=== PATIENT | male | born 1970 | race Caucasian/White ===

== ENCOUNTER → 2016-08-22 | Outpatient (CLI) | payer BC ==
[2016-08-22 11:36] LABS: Prolactin 12.7 ng/mL (3.7-17.9)
== END | disposition home or self-care (01) ==
LOC: LABWHC1 10:42
PROVIDERS: ATTEND Internal Medicine Endocrinology, Diabetes & Metabolism
DX: E05.90 Thyrotoxicosis, unspecified without thyrotoxic crisis or storm (principal); R53.83 Other fatigue
CPT/HCPCS: 36415; 82533; 84146; 84439; 84443; 84445; 84480

== ENCOUNTER → 2016-08-27 | Outpatient (CLI) | payer BC ==
--- NOTE | 2016-08-28 12:52 | NM ---
EXAMINATION TYPE: NM thyroid image w uptake DATE OF EXAM: 08/28/2016 12:31 PM COMPARISON: NONE HISTORY: Subclinical hyperthyroidism TECHNIQUE: After the intravenous administration of 10.45 mCi Tc 99m Sodium Pertechnetate, thyroid lenny ging is performed 10 minutes post injection. Thyroid iodine uptake is calculated after the oral admin istration of 16 uCi I-131 capsule. FINDINGS: There is normal distribution of activity throughout the gland. No photopenic defect or foc al hot nodules are evident. The 4 hour iodine uptake is calculated at 6.8% which is slightly low. (no rmal range 8-14%). The 24-hour iodine uptake is calculated at 21.1% (normal range 15-35%). IMPRESSION: 1. Slight low uptake at 4 hours abnormal uptake at 24 hours. 2. Note suspicious signal abnormality on uptake
== END | disposition home or self-care (01) ==
LOC: RADNMMAIN 11:17
PROVIDERS: ATTEND Internal Medicine Endocrinology, Diabetes & Metabolism
DX: E05.90 Thyrotoxicosis, unspecified without thyrotoxic crisis or storm (principal)
CPT/HCPCS: 78014; A9528; A9512

== ENCOUNTER → 2016-10-14 | Outpatient (CLI) | payer BC | END | disposition home or self-care (01) | LOC: LABWHC1 17:28 | PROVIDERS: ATTEND Internal Medicine Endocrinology, Diabetes & Metabolism | DX: E05.90 Thyrotoxicosis, unspecified without thyrotoxic crisis or storm (principal) | CPT/HCPCS: 36415; 84439; 84443; 84480 ==

== ENCOUNTER → 2016-12-19 | Outpatient (CLI) | payer BC | LOC: LABWHC1 12:08 | PROVIDERS: ATTEND Internal Medicine Endocrinology, Diabetes & Metabolism | DX: E05.90 Thyrotoxicosis, unspecified without thyrotoxic crisis or storm (principal) | CPT/HCPCS: 36415; 84439; 84443; 84480 ==

== ENCOUNTER → 2017-07-19 | Outpatient (CLI) | payer BC ==
[2017-07-19 14:34] LABS: T4, Free (Free Thyroxine) 0.95 ng/dL (0.78-2.19)
== END | disposition home or self-care (01) ==
LOC: LABWHC1 13:15
PROVIDERS: ATTEND Internal Medicine Endocrinology, Diabetes & Metabolism
DX: E05.90 Thyrotoxicosis, unspecified without thyrotoxic crisis or storm (principal)
CPT/HCPCS: 36415; 84439; 84443; 84480

== ENCOUNTER → 2017-10-18 | Outpatient (CLI) | payer BC ==
[2017-10-18 15:50] LABS: ALT 37 U/L (21-72); AST 26 U/L (17-59); Albumin 4.6 g/dL (3.5-5.0); Alkaline Phosphatase 70 U/L (38-126); Anion Gap 12 mmol/L; Blood Urea Nitrogen 9 mg/dL (9-20); Calcium 9.4 mg/dL (8.4-10.2); Carbon Dioxide 29 mmol/L (22-30); Chloride 104 mmol/L (98-107); Glucose 88 mg/dL (74-99); Potassium 3.8 mmol/L (3.5-5.1); Sodium 145 mmol/L (137-145); Total Bilirubin 0.7 mg/dL (0.2-1.3); Total Protein 7.2 g/dL (6.3-8.2)
[2017-10-18 16:06] LABS: T4, Free (Free Thyroxine) 0.78 ng/dL (0.78-2.19)
== END | disposition home or self-care (01) ==
LOC: LABWHC1 14:57
PROVIDERS: ATTEND Internal Medicine Endocrinology, Diabetes & Metabolism
DX: E05.90 Thyrotoxicosis, unspecified without thyrotoxic crisis or storm (principal)
CPT/HCPCS: 36415; 80053; 84439; 84443; 84480

== ENCOUNTER 2018-03-06 20:03 | Emergency (ER) | payer BC ==
[2018-03-06 20:14] VITALS: TEMP 98.5
[2018-03-06] MEDS ORDERED: ASPIRIN 81 MG PO STA (20:46)
--- NOTE | 2018-03-06 21:02 | ED ---
Chest Pain HPI - General Chief Complaint: Chest Pain Stated Complaint: Chest pain Time Seen by Provider: 03/06/18 20:34 Source: patient Mode of arrival: wheelchair Limitations: no limitations - History of Present Illness Initial Comments: 47-year-old male patient presents to the emergency department today for evaluation of discomfort to his chest and shortness of breath. Patient states that he has been having episodes of tightness in his chest. States that he does physical activity he becomes winded, dizzy, and feels very tired. States this is very unlike him as he is active. Patient states he has been having increased to his chronic upper back pain over the last couple weeks. States he has been seeing a chiropractor for this and has improved somewhat. States that he is also been having waves of tingling to his upper body and head. He denies any sweats, nausea, vomiting, abdominal pain, constipation, or diarrhea. States his father did have a heart attack a couple of weeks ago. States he personally has a history of hypertension and hyperlipidemia. Patient denies any recent rash, fever, chills, constipation, back pain, hematuria, dysuria, urinary urgency, urinary frequency, headache, visual changes, or any other complaints. - Related Data Home Medications Medication Instructions Recorded Confirmed Losartan/Hydrochlorothiazide 1 tab PO DAILY 03/06/18 03/06/18 [Hyzaar 100-12.5 Tablet] Methimazole 2.5 mg PO Q48H 03/06/18 03/06/18 Methimazole 5 mg PO Q48H 03/06/18 03/06/18 Simvastatin [Zocor] 20 mg PO HS 03/06/18 03/06/18 Allergies Allergy/AdvReac Type Severity Reaction Status Date / Time No Known Allergies Allergy Verified 03/06/18 20:37 Review of Systems ROS Statement: Those systems with pertinent positive or pertinent negative responses have been documented in the HPI. ROS Other: All systems not noted in ROS Statement are negative. EKG Findings - EKG Comments: EKG Findings:: EKG obtained at 2025 shows normal sinus rhythm with a ventricular rate of 76, DC interval 156, QRS duration 98, QT 394, QTC 443. No evidence of ST elevation or depression. Past Medical History Past Medical History: Hyperlipidemia, Hypertension, Thyroid Disorder History of Any Multi-Drug Resistant Organisms: None Reported Past Surgical History: Joint Replacement, Tonsillectomy Past Psychological History: No Psychological Hx Reported Smoking Status: Never smoker Past Alcohol Use History: None Reported Past Drug Use History: None Reported General Exam Limitations: no limitations General appearance: alert, in no apparent distress, other (This is a well- developed, well-nourished adult male patient in no acute distress. Vital signs upon presentation are temperature 98.5F, pulse 77, respirations 18, blood pressure 179/108, pulse ox 100% on room air.) Eye exam: Present: normal appearance, PERRL, EOMI. Absent: scleral icterus, conjunctival injection, periorbital swelling Neck exam: Present: normal inspection. Absent: tenderness, meningismus, lymphadenopathy Respiratory exam: Present: normal lung sounds bilaterally. Absent: respiratory distress, wheezes, rales, rhonchi, stridor Cardiovascular Exam: Present: regular rate, normal rhythm, normal heart sounds. Absent: systolic murmur, diastolic murmur, rubs, gallop, clicks GI/Abdominal exam: Present: soft, normal bowel sounds. Absent: distended, tenderness, guarding, rebound, rigid Neurological exam: Present: alert, oriented X3, CN II-XII intact Psychiatric exam: Present: normal affect, normal mood Skin exam: Present: warm, dry, intact, normal color. Absent: rash Course Vital Signs 03/06/18 03/06/18 03/06/18 20:11 20:40 21:00 Temperature 98.5 F Pulse Rate 77 81 79 Respiratory 18 14 20 Rate Blood Pressure 179/108 163/99 163/99 O2 Sat by Pulse 100 100 Oximetry 03/06/18 03/06/18 03/07/18 22:00 22:30 01:00 Temperature Pulse Rate 84 81 79 Respiratory 22 19 16 Rate Blood Pressure 167/107 176/92 150/93 O2 Sat by Pulse 99 96 97 Oximetry Chest Pain [facility] RADIOLOGY:Two-view x-ray of the chest is obtained. Report was reviewed in its entirety. Impression by Dr. Jimenez shows no acute cardiopulmonary process. MDM: 47-year-old male patient presented to the emergency department today for evaluation of chest discomfort, dyspnea and fatigue. Patient symptoms have been going on for the last couple of days. Physical examination is relatively unremarkable. Lungs are clear to auscultation with good air movement. Labs reviewed and were unremarkable. Initial troponin was negative. EKG showed normal sinus rhythm with no changes. Heart score is 3. Patient does see a java engineer yearly for annual checkups. Patient does feel comfortable being discharged home at this time. He is instructed to follow up with his java engineer for recheck and possible further testing such as stress and echo. Return parameters were discussed in detail. He verbalizes understanding and agrees with this plan. Disposition Clinical Impression: Chest pain, Dyspnea Disposition: HOME SELF-CARE Condition: Good Instructions: Chest Pain (ED), Dyspnea (ED) Additional Instructions: Follow-up with her java engineer as soon as possible. Return here immediately for any new, worsening, or concerning symptoms Is patient prescribed a controlled substance at d/c from ED?: No Referrals: Randell Cerda DO [Primary Care Provider] - 1-2 days Nghia Doyle MD [STAFF PHYSICIAN] - 1-2 days Time of Disposition: 23:38
[2018-03-06 21:04] LABS: Basophils # (A) 0.1 k/uL (0-0.2); Basophils % (A) 0 %; Eosinophils # (A) 0.2 k/uL (0-0.7); Eosinophils % (A) 2 %; HCT 44.7 % (39.0-53.0); HGB 15.6 gm/dL (13.0-17.5); Lymphocytes # (A) 2.1 k/uL (1.0-4.8); Lymphocytes % (A) 21 %; MCH 30.6 pg (25.0-35.0); MCHC 34.9 g/dL (31.0-37.0); MCV 87.8 fL (80.0-100.0); Mean Platelet Volume 7.4; Monocytes # (A) 0.7 k/uL (0-1.0); Monocytes % (A) 7 %; Neutrophils # (A) 6.9 k/uL (1.3-7.7); Neutrophils % (A) 67 %; Platelet Count 187 k/uL (150-450); RBC 5.09 m/uL (4.30-5.90); RDW 13.1 % (11.5-15.5); WBC 10.2 k/uL (3.8-10.6)
--- NOTE | 2018-03-06 21:06 | XR ---
EXAMINATION TYPE: XR chest 2V DATE OF EXAM: 03/06/2018 COMPARISON: NONE HISTORY: Chest pain TECHNIQUE: Frontal and lateral views of the chest are obtained. FINDINGS: There is no focal air space opacity, pleural effusion, or pneumothorax seen. The cardiac silhouette size is within normal limits. The osseous structures are intact. Mild multilevel degener ative changes of the spine are present. IMPRESSION: No acute cardiopulmonary process.
[2018-03-06 21:17] LABS: D-Dimer 0.21 mg/L FEU (<0.60); INR 1.1 (<1.2); Partial Thromboplastin Time 24.2 sec (22.0-30.0); Prothrombin Time 10.3 sec (9.0-12.0)
[2018-03-06 21:48] LABS: Albumin 4.6 g/dL (3.5-5.0); Calcium 9.5 mg/dL (8.4-10.2); Potassium 4.2 mmol/L (3.5-5.1); Total Bilirubin 0.8 mg/dL (0.2-1.3); Total Protein 7.6 g/dL (6.3-8.2)
[2018-03-06 21:50] LABS: Creatine Kinase 85 U/L (55-170)
[2018-03-06 22:00] LABS: Creatine Kinase MB 0.6 ng/mL (0.0-2.4); Troponin I <0.012 ng/mL (0.000-0.034)
[2018-03-07 01:01] VITALS: BP 150/93; PULSE 79; RESP 16
== END 2018-03-07 00:35 | disposition home or self-care (01) ==
LOC: EC 20:03
DX: R07.89 Other chest pain (principal); R06.00 Dyspnea, unspecified; R53.83 Other fatigue; E78.5 Hyperlipidemia, unspecified; I10 Essential (primary) hypertension; Z79.899 Other long term (current) drug therapy
CPT/HCPCS: 36415; 71046; 80053; 82550; 82553; 83735; 84443; 84484; 85025; 85379; 85610; 85730; 93005; 99285

== ENCOUNTER → 2018-03-07 | Outpatient (CLI) | payer BC | LOC: LABWHC1 10:23 | PROVIDERS: ATTEND Internal Medicine Endocrinology, Diabetes & Metabolism | DX: E05.90 Thyrotoxicosis, unspecified without thyrotoxic crisis or storm (principal) | CPT/HCPCS: 36415; 84439; 84443; 84480 ==

== ENCOUNTER → 2018-07-12 | Outpatient (CLI) | payer BC, OTHER ==
[2018-07-12 19:25] LABS: T4, Free (Free Thyroxine) 1.1 ng/dL (0.80-1.80)
== END | disposition home or self-care (01) ==
LOC: LABWHC1 11:42
PROVIDERS: ATTEND Internal Medicine Endocrinology, Diabetes & Metabolism
DX: E05.90 Thyrotoxicosis, unspecified without thyrotoxic crisis or storm (principal)
CPT/HCPCS: 36415; 84439; 84443; 84480

== ENCOUNTER → 2019-04-14 | Outpatient (CLI) | payer BC, OTHER ==
[2019-04-14 17:10] LABS: T4, Free (Free Thyroxine) 1.2 ng/dL (0.80-1.80)
== END | disposition home or self-care (01) ==
LOC: LABWHC1 11:01
PROVIDERS: ATTEND Internal Medicine Endocrinology, Diabetes & Metabolism
DX: E05.90 Thyrotoxicosis, unspecified without thyrotoxic crisis or storm (principal)
CPT/HCPCS: 36415; 84439; 84443; 84480

== ENCOUNTER → 2020-02-29 | Outpatient (CLI) | payer BC ==
[2020-02-29 23:53] LABS: African American GFR (CKD) 90.9 (60.0-200.0); Albumin 4.8 g/dL (3.80-4.90); Anion Gap 8.2 mmol/L (4.00-12.00); BUN/Creat Ratio 9.09 Ratio (12.00-20.00); Calcium 9.4 mg/dL (8.7-10.3); Carbon Dioxide 29.8 mmol/L (21.6-31.8); Globulin 2.4 g/dL (1.6-3.3); Non-African American GFR(CKD) 78.4 (60.0-200.0); Potassium 3.7 mmol/L (3.5-5.5); Total Bilirubin 0.8 mg/dL (0.3-1.2); Total Protein 7.2 g/dL (6.2-8.2)
[2020-03-01 00:06] LABS: T4, Free (Free Thyroxine) 1.1 ng/dL (0.80-1.80)
== END | disposition home or self-care (01) ==
LOC: LABWHC1 16:01
PROVIDERS: ATTEND Internal Medicine Endocrinology, Diabetes & Metabolism
DX: E05.90 Thyrotoxicosis, unspecified without thyrotoxic crisis or storm (principal)
CPT/HCPCS: 36415; 80053; 84439; 84443; 84480

== ENCOUNTER → 2020-06-03 | Outpatient (CLI) | payer BC ==
[2020-06-04 02:50] LABS: T4, Free (Free Thyroxine) 1.2 ng/dL (0.80-1.80)
[2020-06-04 02:55] LABS: Albumin 5.1 g/dL (3.80-4.90); Albumin/Globulin Ratio 2.55 (1.60-3.17); Anion Gap 11.3 mmol/L (4.00-12.00); Calcium 9.3 mg/dL (8.7-10.3); Carbon Dioxide 29.7 mmol/L (21.6-31.8); Potassium 3.4 mmol/L (3.5-5.5); Total Bilirubin 0.5 mg/dL (0.2-1.2); Total Protein 7.1 g/dL (6.2-8.2)
== END | disposition home or self-care (01) ==
LOC: LABWHC1 15:23
PROVIDERS: ATTEND Internal Medicine Endocrinology, Diabetes & Metabolism
DX: E05.90 Thyrotoxicosis, unspecified without thyrotoxic crisis or storm (principal)
CPT/HCPCS: 36415; 80053; 84439; 84443; 84480

== ENCOUNTER → 2020-09-18 | Outpatient (CLI) | payer BC | END | disposition home or self-care (01) | LOC: LABWHC1 07:14 | PROVIDERS: ATTEND Internal Medicine Endocrinology, Diabetes & Metabolism | DX: E05.90 Thyrotoxicosis, unspecified without thyrotoxic crisis or storm (principal) | CPT/HCPCS: 36415; 84439; 84443; 84480 ==

== ENCOUNTER 2021-02-05 07:29 | Day surgery (SDC) | payer BC ==
[2021-01-31 09:35] VITALS: BMI 33.0
[~2021-02-05 07:29] MED LIST: LACTATED RINGERS 1,000 ML IV SCH; LIDOCAINE 1% (10MG/ML) FOR IV START INTRADERMA PRN
[2021-02-05 07:51] VITALS: RESP 16; TEMP 98
[2021-02-05] MEDS ORDERED: PROPOFOL 10 MG/ML 20 ML VIAL IV ONE (08:22)
--- NOTE | 2021-02-05 08:40 | P.PCN ---
Date of Procedure: 02/05/21 Procedure(s) Performed: BRIEF HISTORY: Patient is a 50-year-old pleasant male scheduled for an elective colonoscopy as a part of screening for colorectal neoplasia. PROCEDURE PERFORMED: Colonoscopy With biopsy PREOPERATIVE DIAGNOSIS: Screening for colon cancer. IV sedation per Anesthesia. PROCEDURE: After informed consent was obtained, the patient, was brought into the endoscopy unit. IV sedation was administered by Anesthesia under continuous monitoring. Digital rectal examination was normal. Initially the Olympus CF-160 flexible video colonoscope was then inserted in the rectum, gradually advanced into the cecum without any difficulty. Careful examination was performed as the scope was gradually being withdrawn. Ileocecal valve and the appendiceal orifice were visualized and appeared normal. Prep was excellent. Mucosa of the cecum, appeared normal. In the ascending colon there was a 3-4 mm sessile polyp removed by cold biopsy. Rest of the ascending colon, transverse colon, descending colon, sigmoid colon, and rectum appeared normal. Retroflexion was performed in the rectum and no lesions were seen. The patient tolerated the procedure well. IMPRESSION: 3-4 mm ascending colon polyp status post cold biopsy Rest of the colon appeared normal RECOMMENDATIONS: Findings of this examination were discussed with the patient as well as his family. He was advised to follow with the biopsy results and if the biopsy reveals adenoma have a repeat colonoscopy in 5 years
[2021-02-05 09:23] VITALS: BP 136/77; PULSE 86
== END 2021-02-05 09:30 | disposition home or self-care (01) ==
LOC: ORWHC2ENDO 07:29
PROVIDERS: ATTEND Internal Medicine Gastroenterology
DX: Z12.11 Encounter for screening for malignant neoplasm of colon (principal); D12.2 Benign neoplasm of ascending colon; I10 Essential (primary) hypertension; E78.5 Hyperlipidemia, unspecified; E07.9 Disorder of thyroid, unspecified; M54.50 Low back pain, unspecified; K21.9 Gastro-esophageal reflux disease without esophagitis; Z79.899 Other long term (current) drug therapy; Z98.890 Other specified postprocedural states; Z85.89 Personal history of malignant neoplasm of other organs and systems
CPT/HCPCS: 88305; 45380; J2704

== ENCOUNTER → 2021-09-18 | Outpatient (CLI) | payer BC ==
[2021-09-18 23:41] LABS: T4, Free (Free Thyroxine) 1.02 ng/dL (0.800-1.800)
== END | disposition home or self-care (01) ==
LOC: LABWHC1 16:14
PROVIDERS: ATTEND Internal Medicine Endocrinology, Diabetes & Metabolism
DX: E05.90 Thyrotoxicosis, unspecified without thyrotoxic crisis or storm (principal)
CPT/HCPCS: 36415; 84439; 84443; 84481

== ENCOUNTER → 2022-11-23 | Outpatient (CLI) | payer BC ==
[2022-11-23 14:48] LABS: T4, Free (Free Thyroxine) 1.1 ng/dL (0.80-1.80)
== END | disposition home or self-care (01) ==
LOC: LABWHC1 08:42
PROVIDERS: ATTEND Internal Medicine Endocrinology, Diabetes & Metabolism
DX: E05.90 Thyrotoxicosis, unspecified without thyrotoxic crisis or storm (principal)
CPT/HCPCS: 36415; 84439; 84443; 84480; 84481

== ENCOUNTER → 2023-04-13 | Outpatient (CLI) | payer BC ==
[2023-04-14 03:46] LABS: ALT 33 U/L (10-49); AST 24 U/L (14-35); Albumin 4.8 g/dL (3.8-4.9); Albumin/Globulin Ratio 1.71 Ratio (1.60-3.17); Alkaline Phosphatase 81 U/L (41-126); BUN/Creat Ratio 10.73 Ratio (12.00-20.00); Blood Urea Nitrogen 11.8 mg/dL (9.0-27.0); Calcium 9.9 mg/dL (8.7-10.3); Carbon Dioxide 30.1 mmol/L (21.6-31.8); Chloride 99 mmol/L (96-109); Globulin 2.8 g/dL (1.6-3.3); Glucose 91 mg/dL (70-110); Potassium 3.4 mmol/L (3.5-5.5); Sodium 143 mmol/L (135-145); T4, Free (Free Thyroxine) 1.24 ng/dL (0.80-1.80); Total Bilirubin 0.7 mg/dL (0.3-1.2); Total Protein 7.6 g/dL (6.2-8.2)
== END | disposition home or self-care (01) ==
LOC: LABWHC1 16:13
PROVIDERS: ATTEND Internal Medicine Endocrinology, Diabetes & Metabolism
DX: E05.90 Thyrotoxicosis, unspecified without thyrotoxic crisis or storm (principal)
CPT/HCPCS: 36415; 80053; 84439; 84443; 84480